=== PATIENT | male | born 1950 | race Caucasian/White ===

== ENCOUNTER → 2018-06-17 | Outpatient (CLI) | END | disposition home or self-care (01) ==

== ENCOUNTER → 2018-06-27 | Outpatient (CLI) | END | disposition home or self-care (01) ==

== ENCOUNTER → 2018-09-26 | Outpatient (CLI) | payer MEDICARE, BC ==
--- NOTE | 2018-09-26 17:23 | CONS ---
Consult Date/Type/Reason Admit Date/Time Initial Consult Date Date/Time of Note DATE: 09/26/18 TIME: 17:21 Subjective This is a 66-year-old male well-known to me who returns to clinic today for left knee pain. To quickly summarize his history he sustained an insufficiency fracture to his left lateral condyle. He also had a medial meniscus tear which he underwent arthroscopic knee surgery by another surgeon at the time he had this insufficiency fracture. From reviewing previous imaging pre-and postoperative. 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 He had a steroid injection 3 months ago by myself. His symptoms completely resolved and is very happy. 3 nights ago he was sleeping in bed and he twisted his knee and he had sudden lateral pain which has now also mostly resolved and now he has some medial pain. Overall the pain is much improved since it started 3 days ago. Denies any swelling. He wants to just make sure nothing else was happening. Denies numbness and tingling. Objective Vitals Weight: 175 pounds Height: 6 foot Temperature: 90.4 Heart Rate: 67 Blood Pressure: 118/65 Respiratory Rate: 12 Exam General: Awake, alert, in no acute distress, pleasant and cooperative Heart: regular rhythm Lungs: breathing comfortably, no tachypnea or dyspnea MUSCULOSKELETAL: Left lower extremity: Skin is intact. No effusion. Minimal tenderness to palpation over the lateral femoral condyle. Mild tenderness palpation over the medial joint line and medial femoral condyle. Ligamentously stable. Full range of motion. Sensation intact to light touch in a sural, saphenous, deep peroneal, superficial peroneal, medial and lateral plantar nerve distribution. Motor is intact, patient able to dorsiflex and plantarflex ankle and extend and flex great toe. Dorsalis Pedis pulse +2, Brisk capillary refill. Compartments are soft. Calves non-tender to palpation bilaterally. Assessment/Plan Hospital Course (Demo Recall) 68-year-old male with 3-day history of acute left knee pain. He has previous known injury and insufficiency fracture to the left knee. His new symptoms occurred without any additional trauma. They have significantly improved over the last 3 days. There are no signs of instability or effusion on examination. At this time I would like to continue conservative management. Recommending ice, rest, NSAIDs. If he does not improve he should return to clinic for x-rays and possible injection. SERENITY CHAKRABORTY MD Sep 26, 2018 17:23
== END | disposition home or self-care (01) ==
LOC: HKI 13:37
PROVIDERS: ATTEND Orthopaedic Surgery Adult Reconstructive Orthopaedic Surgery
DX: M25.562 Pain in left knee (principal)
CPT/HCPCS: G0463